=== PATIENT | female | born 1985 | race Caucasian/White ===

== ENCOUNTER 2017-05-15 10:46 | Emergency (ER) | payer MEDICAID ==
[2017-05-15 10:55] VITALS: BMI 29.2
--- NOTE | 2017-05-15 10:56 | ED PDOC ---
Arrival/HPI - General Time Seen by Provider: 05/15/17 10:49 Historian: Patient - History of Present Illness Narrative History of Present Illness (Text): 05/15/17 10:53 31yo female present with complaint of suprapubic abdominal pain x 2weeks. Also reports nausea and vomiting. she states her LMP was March 28. States she took home test and it was positive. Denies vaginal bleeding, urinary symptoms, fever, chills, chest pain, any other complaint. Past Medical History - Provider Review Nursing Documentation Reviewed: Yes - Cardiac Hx Cardiac Disorders: No - Pulmonary Hx Respiratory Disorders: No - Neurological Hx Neurological Disorder: No - HEENT Hx HEENT Disorder: No - Renal Hx Renal Disorder: No - Endocrine/Metabolic Hx Endocrine Disorders: No - Hematological/Oncological Hx Blood Disorders: No - Integumentary Hx Dermatological Disorder: No - Musculoskeletal/Rheumatological Hx Musculoskeletal Disorders: No - Gastrointestinal Hx Gastritis: Yes Hx Gastrointestinal Ulcer: Yes - Genitourinary/Gynecological Hx Genitourinary Disorders: No - Psychiatric Hx Substance Use: No - Surgical History Hx Section: Yes (x1) - Anesthesia Hx Anesthesia: Yes Hx Anesthesia Reactions: No - Suicidal Assessment Feels Threatened In Home Enviroment: No Family/Social History - Physician Review Nursing Documentation Reviewed: Yes Family/Social History: Unknown Family HX Smoking Status: Never Smoked Hx Alcohol Use: No Hx Substance Use: No Allergies/Home Meds Allergies/Adverse Reactions: Allergies No Known Allergies Allergy (Verified 05/15/17 10:55) Home Medications: Home Meds Medication Instructions Recorded Confirmed No Known Home Med 05/15/17 05/15/17 Review of Systems - Physician Review All systems were reviewed & negative as marked: Yes - Review of Systems Constitutional: Normal Eyes: Normal ENT: Normal Respiratory: Normal Cardiovascular: Normal Gastrointestinal: Abdominal Pain, Nausea, Vomiting. absent: Constipation, Diarrhea, Hematochezia, Hematemesis Genitourinary Female: Normal Musculoskeletal: Normal Skin: Normal Neurological: Normal Endocrine: Normal Hemo/Lymphatic: Normal Psychiatric: Normal Physical Exam Vital Signs Reviewed: Yes Vital Signs Temp Pulse Resp BP Pulse Ox 05/15/17 14:18 98 F 75 20 125/71 99 05/15/17 12:19 98 F 73 20 137/70 98 05/15/17 11:28 98.1 F 05/15/17 11:07 98.2 F 75 18 125/75 98 Temperature: Afebrile Blood Pressure: Normal Pulse: Regular Respiratory Rate: Normal Appearance: Positive for: Well-Appearing, Non-Toxic, Comfortable Pain Distress: None Mental Status: Positive for: Alert and Oriented X 3 - Systems Exam Head: Present: Atraumatic, Normocephalic Pupils: Present: PERRL Extroacular Muscles: Present: EOMI Conjunctiva: Present: Normal Mouth: Present: Moist Mucous Membranes Neck: Present: Normal Range of Motion Respiratory/Chest: Present: Clear to Auscultation, Good Air Exchange. No: Respiratory Distress, Accessory Muscle Use Cardiovascular: Present: Regular Rate and Rhythm, Normal S1, S2. No: Murmurs Abdomen: Present: Tenderness (Suprapubic tenderness), Normal Bowel Sounds. No: Distention, Peritoneal Signs, Rebound, Guarding, McBurney's Point Tender, Rovsing's Sign Present Back: Present: Normal Inspection Upper Extremity: Present: Normal Inspection. No: Cyanosis, Edema Lower Extremity: Present: Normal Inspection. No: Edema Neurological: Present: GCS=15, CN II-XII Intact, Speech Normal Skin: Present: Warm, Dry, Normal Color. No: Rashes Psychiatric: Present: Alert, Oriented x 3, Normal Insight, Normal Concentration Medical Decision Making ED Course and Treatment: 05/15/17 14:19 IMPRESSION: A single viable intrauterine gestation identified within intracavity early 1st trimester with a gestational age measuring 6 weeks 3 days based on crown-rump length measurement. Positive cardiac activity identified as discussed above. No suspicious hemorrhage related to gestation at this time. Clinical correlation is advised. Follow-up ultrasound can be performed as clinically warranted. - Lab Interpretations Lab Results: 05/15/17 11:25 05/15/17 11:25 Lab Results 05/15/17 11:25: Beta HCG, Quant 64650.00 H 05/15/17 11:25: Sodium 137, Potassium 4.1, Chloride 101, Carbon Dioxide 26, Anion Gap 14, BUN 8, Creatinine 0.7, Est GFR ( Amer) > 60, Est GFR (Non- Af Amer) > 60, Random Glucose 97, Calcium 9.5, Total Bilirubin 0.6, AST 26, ALT 31, Alkaline Phosphatase 74, Total Protein 7.9, Albumin 4.3, Globulin 3.6, Albumin/Globulin Ratio 1.2 05/15/17 11:25: PT 12.4, INR 1.12 H, APTT 31.1 05/15/17 11:25: WBC 9.8, RBC 4.63, Hgb 13.1, Hct 38.9, MCV 84.0, MCH 28.3, MCHC 33.7, RDW 13.3, Plt Count 273, MPV 8.8, Gran % 74.8 H, Lymph % (Auto) 21.0 L, [place] % (Auto) 3.7, Eos % (Auto) 0.3 L, Baso % (Auto) 0.2, Gran # 7.32 H, Lymph # 2.1, [place] # 0.4, Eos # 0.0, Baso # 0.02 05/15/17 11:15: Urine Color Yellow, Urine Appearance Sl cloudy, Urine pH 6.0, Ur Specific [place] >= 1.030, Urine Protein Trace H, Urine Glucose (UA) Negative , Urine Ketones Negative, Urine Blood Negative, Urine Nitrate Negative, Urine Bilirubin Negative, Urine Urobilinogen 0.2, Ur Leukocyte Esterase Negative, Urine RBC 0 - 2, Urine WBC 0 - 2, Ur Epithelial Cells 6 - 8, Urine Bacteria Small, Urine HCG, Qual Positive - RAD Interpretation Radiology Orders: 05/15/17 10:56 OB TRANSVAGINAL [US] Stat - Medication Orders Current Medication Orders: Discontinued Medications Acetaminophen (Tylenol 325mg Tab) 650 mg PO STAT STA Stop: 05/15/17 10:59 Last Admin: 05/15/17 11:28 Dose: 650 mg MAR Pain/Vitals Document 05/15/17 11:28 MS (Rec: 05/15/17 11:32 MS [facility] [id number] Pain Reassessment Is This A Pain ReAssessment? No Sleep Is patient sleeping during reassessment? No Presence of Pain Presence of Pain Yes Pain Scale Used Pain Scale Used Numeric Location Left, Right or Bilateral Bilateral Upper or Lower Lower Pain Location Body Site Abdomen Description Constant Intensity 4 Scale Used Numeric Pain Behavior Irritability Restlessness Alleviating Factors Medication Vitals Temperature (97.6 F-99.6 F) 98.1 F Temperature Source Oral Sodium Chloride (Sodium Chloride 0.9%) 1,000 mls @ 999 mls/hr IV .Q1H1M STA Stop: 05/15/17 11:57 Last Admin: 05/15/17 11:44 Dose: 999 mls/hr eMAR Start Stop Document 05/15/17 11:44 MS (Rec: 05/15/17 11:44 [place] [facility] [place] [email or web address] Intravenous Solution Start Date 05/15/17 Start Time 11:30 Ondansetron HCl (Zofran Inj) 4 mg IVP STAT STA Stop: 05/15/17 10:59 Last Admin: 05/15/17 11:32 Dose: 4 mg IVP Administration Document 05/15/17 11:32 MS (Rec: 05/15/17 11:32 [facility] [place] [email or web address] Charges for Administration # of IVP Administrations 1 Disposition/Present on Arrival - Present on Arrival Any Indicators Present on Arrival: No History of DVT/PE: No History of Uncontrolled Diabetes: No Urinary Catheter: No History Surgical Site Infection Following: None - Disposition Have Diagnosis and Disposition been Completed?: Yes Diagnosis: Abdominal pain in Disposition: HOME/ ROUTINE Disposition Time: 14:20 Patient Plan: Discharge Condition: STABLE Discharge Instructions (ExitCare): Abdominal Pain in (ED) Additional Instructions: Follow up with your TEAM PRIMARY CARE PHYSICIAN Return to ED for any new symptoms Referrals: Pepper Garcia, [Primary Care Provider] - Follow up with primary Cele Beltran MD [Staff Provider] - Follow up with primary
[2017-05-15] MEDS ORDERED: Sodium Chloride 0.9% 1,000 ML IV STA (10:57)
[2017-05-15 11:34] LABS: BASO # 0.02 K/mm3 (0.0-2.0); BASO % 0.2 % (0.0-3.0); EOS % 0.3 % (1.5-5.0); GRAN # 7.32 (1.4-6.5); GRAN % 74.8 % (50.0-68.0); HEMATOCRIT 38.9 % (36.0-48.0); LYMPH # 2.1 (1.2-3.4); MEAN CORPUSCULAR HEMOGLOBIN 28.3 pg (25.0-35.0); MEAN CORPUSCULAR HGB CONC 33.7 g/dl (31.0-37.0); MEAN PLATELET VOLUME 8.8 fl (7.0-11.0); MONO # 0.4 (0.1-0.6); MONO % 3.7 % (1.0-6.0); RED CELL DISTRIBUTION WIDTH 13.3 % (11.5-14.5); WHITE BLOOD COUNT 9.8 10^3/ul (4.5-11.0)
[2017-05-15 11:39] LABS: URINE BILIRUBIN NEGATIVE (NEGATIVE); URINE BLOOD NEGATIVE (NEGATIVE); URINE GLUCOSE (UA) NEGATIVE (NEGATIVE); URINE KETONE NEGATIVE (NEGATIVE); URINE LEUKOCYTE ESTERASE NEGATIVE Leu/uL (NEGATIVE); URINE PROTEIN TRACE mg/dL (<30 mg/dL); URINE UROBILINOGEN 0.2 E.U./dL (<1 E.U./dL)
[2017-05-15 11:42] LABS: URINE APPEARANCE SL CLOUDY (CLEAR); URINE COLOR YELLOW (YELLOW)
[2017-05-15 11:44] LABS: INR 1.12 (0.93-1.08); PARTIAL THROMBOPLASTIN TIME 31.1 Seconds (25.1-36.5)
[2017-05-15 11:49] LABS: ALB/GLOB RATIO 1.2 (1.1-1.8); ALKALINE PHOSPHATASE 74 U/L (38-126); ALT/SGPT 31 U/L (7-56); AST/SGOT 26 U/L (14-36); BILIRUBIN,TOTAL 0.6 mg/dL (0.2-1.3); BLOOD UREA NITROGEN 8 mg/dL (7-21); CALCIUM 9.5 mg/dL (8.4-10.5); CARBON DIOXIDE 26 mmol/L (21-33); CHLORIDE 101 mmol/L (98-107); GFR AFRICAN-AMERICAN > 60; GLUCOSE,RANDOM 97 mg/dL (70-110); POTASSIUM 4.1 mmol/L (3.6-5.0); SODIUM 137 mmol/L (132-148); TOTAL PROTEIN 7.9 g/dL (5.8-8.3)
[2017-05-15 11:54] LABS: URINE BACTERIA SMALL (NEG); URINE RBC 0 - 2 /hpf (0-2); URINE WBC 0 - 2 /hpf (0-6)
[2017-05-15 12:20] VITALS: TEMP 98
--- NOTE | 2017-05-15 14:15 | US ---
HISTORY: abdominal pain/ COMPARISON: None available. TECHNIQUE: Transabdominal and transvaginal pelvic ultrasound were performed for evaluation of . Last menstrual period is unknown. FINDINGS: UTERUS: Measures 10 x 5 x 6.5 x 8.3 cm. Uterus is enlarged by intrauterine gestation. No discrete myometrial lesion is identified throughout. The uterus appears anteverted. ENDOMETRIUM: A gestational sac is identified within the endometrial cavity with yolk sec identified measuring 0.3 cm. pole is identified with a mean crown-rump length measurement of 0.61 cm corresponds to a average ultrasound age of 6 weeks 3 days. The mean gestational sac measures 1.76 cm. cardiac activity is recorded at 129 beats per minute. No definite decidual related hemorrhage is appreciated in the decidual reaction which is unremarkable appearing. CERVIX: Closed cervix is identified measuring 3.8 cm. RIGHT OVARY: Measures 3.8 x 2.2 x 2.1 cm. No solid mass. Normal flow. LEFT OVARY: Measures 2.5 x 1.5 x 1.4 cm. No solid mass. Normal flow. FREE FLUID: No significant free fluid noted. OTHER FINDINGS: None. IMPRESSION: A single viable intrauterine gestation identified within intracavity early 1st trimester with a gestational age measuring 6 weeks 3 days based on crown-rump length measurement. Positive cardiac activity identified as discussed above. No suspicious hemorrhage related to gestation at this time. Clinical correlation is advised. Follow-up ultrasound can be performed as clinically warranted.
[2017-05-15 14:19] VITALS: PULSE 75
[2017-05-15 17:03] VITALS: BP 124/71; RESP 19; O2SAT 100
== END 2017-05-15 17:06 | disposition home or self-care (01) ==
LOC: ED 10:46
DX: O26.891 Other specified pregnancy related conditions, first trimester (principal); Z3A.01 Less than 8 weeks gestation of pregnancy; R10.9 Unspecified abdominal pain
CPT/HCPCS: 76817; 80053; 81001; 84702; 84703; 85025; 85610; 85730; 96374; 99284; J2405; J7040

== ENCOUNTER 2017-06-04 18:41 | Emergency (ER) | payer MEDICAID ==
[2017-06-04 18:41] VITALS: BMI 29.2
[2017-06-04 19:23] VITALS: RESP 18; TEMP 98.4; O2SAT 100
[2017-06-04] MEDS ORDERED: Famotidine 20mg/50ml 20 MG/50 ML BAG IVPB STA (19:45)
[2017-06-04] MEDS ORDERED: Sodium Chloride 0.9% 1,000 ML IV STA (19:47)
--- NOTE | 2017-06-04 20:21 | ED PDOC ---
Arrival/HPI - General Chief Complaint: Abdominal Pain Time Seen by Provider: 06/04/17 19:13 Historian: Patient - History of Present Illness Narrative History of Present Illness (Text): 06/04/17 20:21 A 31 year old female, , 9 weeks , for 1st , and gastritis (not taking medications for it), Croatian speaking, presents to the emergency department complaining of epigastric, RUQ abdominal pain diffusely for a week and vomiting all day today. Patient notes a low grade fever, unsure how high and constipation for the past 5 days, notes hurts to defecate. Also reports lower back pain, neck pain and right arm pain. Denies any vaginal bleeding, significant lower abdominal pain, right arm weakness or any other complaints at this time. VEHICLE GLASS TECHNICIAN: Dr. Escobedo Time/Duration: Other (week, today) Symptom Onset: Sudden Symptom Course: Unchanged Activities at Onset: Rest Context: Home Past Medical History - Provider Review Nursing Documentation Reviewed: Yes - Infectious Disease Hx of Infectious Diseases: None - Cardiac Hx Cardiac Disorders: No - Pulmonary Hx Respiratory Disorders: No - Neurological Hx Neurological Disorder: No - HEENT Hx HEENT Disorder: No - Renal Hx Renal Disorder: No - Endocrine/Metabolic Hx Endocrine Disorders: No - Hematological/Oncological Hx Blood Disorders: No - Integumentary Hx Dermatological Disorder: No - Musculoskeletal/Rheumatological Hx Musculoskeletal Disorders: No - Gastrointestinal Hx Gastroesophageal Reflux: Yes Hx Gastrointestinal Ulcer: Yes Other/Comment: Gastritis - Genitourinary/Gynecological Hx Genitourinary Disorders: No - Psychiatric Hx Psychophysiologic Disorder: No Hx Substance Use: No - Surgical History Hx Section: Yes (x1) - Anesthesia Hx Anesthesia: Yes Hx Anesthesia Reactions: No Hx Malignant Hyperthermia: No - Suicidal Assessment Feels Threatened In Home Enviroment: No Family/Social History - Physician Review Nursing Documentation Reviewed: Yes Family/Social History: No Known Family HX Smoking Status: Never Smoked Hx Alcohol Use: No Hx Substance Use: No Allergies/Home Meds Allergies/Adverse Reactions: Allergies No Known Allergies Allergy (Verified 05/15/17 10:55) Review of Systems - Physician Review All systems were reviewed & negative as marked: Yes - Review of Systems Constitutional: Fevers (low grade) Gastrointestinal: Abdominal Pain (RUQ and epigastric; no lower abdominal pain), Constipation, Vomiting Genitourinary Female: absent: Vaginal Bleeding Musculoskeletal: Back Pain (lower), Neck Pain, Other (r arm pain) Physical Exam Vital Signs Reviewed: Yes Vital Signs Temp Pulse Resp BP Pulse Ox 06/04/17 21:54 86 18 116/72 100 06/04/17 19:22 98.4 F 88 18 122/73 100 Temperature: Afebrile Blood Pressure: Normal Pulse: Regular Respiratory Rate: Normal Appearance: Positive for: Well-Appearing, Non-Toxic, Comfortable Pain Distress: None Mental Status: Positive for: Alert and Oriented X 3 - Systems Exam Head: Present: Atraumatic, Normocephalic Pupils: Present: PERRL Extroacular Muscles: Present: EOMI Conjunctiva: Present: Normal Mouth: Present: Moist Mucous Membranes Neck: Present: Normal Range of Motion Respiratory/Chest: Present: Clear to Auscultation, Good Air Exchange. No: Respiratory Distress, Accessory Muscle Use Cardiovascular: Present: Regular Rate and Rhythm, Normal S1, S2. No: Murmurs Abdomen: Present: Tenderness (epigastric and RUQ pain), Normal Bowel Sounds, Other (gravid abdomen). No: Distention, Peritoneal Signs Back: Present: Normal Inspection Upper Extremity: Present: Normal Inspection. No: Cyanosis, Edema Lower Extremity: Present: Normal Inspection. No: Edema Neurological: Present: GCS=15, CN II-XII Intact, Speech Normal Skin: Present: Warm, Dry, Normal Color. No: Rashes Psychiatric: Present: Alert, Oriented x 3, Normal Insight, Normal Concentration Medical Decision Making ED Course and Treatment: 06/04/17 20:18 Impression: A 31 year old female, 9 weeks , with epigastric and RUQ abdominal pain, vomiting and constipation. Differential Diagnosis included but are not limited to: r/o UTI vs. cholecystitis Plan: -- US gallbladder -- labs -- Urinalysis -- Dulcolax, Pepcid, Reglan, IV fluids, Tylenol -- Reassess and disposition Prior Visits: Notes and results from previous visits were reviewed. Patient was last seen in the emergency department on 05/21/17 for evaluation of nausea, vomiting and epigastric pain. Progress Notes: US Abdomen Limited, Right Upper Quadrant FINDINGS: Liver: Liver is unremarkable. There is hepatopedal flow in the main portal vein. Gallbladder: Gallbladder is distended with no stones, sludge or wall thickening. Common bile duct: Common bile duct measures approximately 3 mm in diameter. Pancreas: Pancreas is partially obscured by bowel gas. Visualized portions unremarkable. Right kidney: Right kidney is unremarkable. Aorta: Visualized portions of the aorta and inferior vena cava are unremarkable. IMPRESSION: No gallstones or ductal dilatation Patient was not tender over the gallbladder. Dictated and Authenticated by: Kelly Cabello MD 06/04/2017 9:04 PM Eastern Time ([place] & [place]) 06/07/17 14:21 lab exam shows no signfiicant electrolyte abnormalities, no UTI, no LFT elevation. no signficiant dehydration. bedside u/s shows good movement. will d/c - Lab Interpretations Microbiology Results: Microbiology Results 06/04/17 20:00 Urine,Clean Catch Urine Culture - Final No Growth (<1,000 CFU/ML) Lab Results: 06/04/17 20:00 06/04/17 20:00 Lab Results 06/04/17 20:00: Urine Color Yellow, Urine Appearance Clear, Urine pH 6.5, Ur Specific [place] 1.020, Urine Protein Negative, Urine Glucose (UA) Negative, Urine Ketones Negative, Urine Blood Negative, Urine Nitrate Negative, Urine Bilirubin Negative, Urine Urobilinogen 0.2, Ur Leukocyte Esterase Negative 06/04/17 20:00: Sodium 136, Potassium 3.9, Chloride 102, Carbon Dioxide 26, Anion Gap 11, BUN 9, Creatinine 0.7, Est GFR ( Amer) > 60, Est GFR (Non- Af Amer) > 60, Random Glucose 89, Calcium 9.8, Magnesium 1.8, Total Bilirubin 0.4, AST 28, ALT 32, Alkaline Phosphatase 74, Total Protein 7.9, Albumin 4.1, Globulin 3.7, Albumin/Globulin Ratio 1.1, Lipase 247 06/04/17 20:00: WBC 11.5 H, RBC 4.16, Hgb 11.9 L, Hct 35.3 L, MCV 84.9, MCH 28.6 , MCHC 33.7, RDW 13.5, Plt Count 256, MPV 9.4, Gran % 68.4 H, Lymph % (Auto) 25.9, [place] % (Auto) 5.3, Eos % (Auto) 0.3 L, Baso % (Auto) 0.1, Gran # 7.83 H, Lymph # 3.0, [place] # 0.6, Eos # 0.0, Baso # 0.01 I have reviewed the lab results: Yes - RAD Interpretation Radiology Orders: 06/04/17 19:42 GALL BLADDER [US] Stat - Medication Orders Current Medication Orders: Discontinued Medications Acetaminophen (Tylenol 325mg Tab) 650 mg PO STAT STA Stop: 06/04/17 19:45 Last Admin: 06/04/17 20:36 Dose: 650 mg MAR Pain/Vitals Document 06/04/17 20:36 SE (Rec: 06/04/17 20:36 SE [id number]) Pain Reassessment Is This A Pain ReAssessment? No Sleep Is patient sleeping during reassessment? No Presence of Pain Presence of Pain Yes Pain Scale Used Pain Scale Used Numeric Bisacodyl (Dulcolax) 10 mg RC STAT STA Stop: 06/04/17 19:46 Last Admin: 06/04/17 20:36 Dose: 10 mg Famotidine (Pepcid 20mg/50ml Premix) 20 mg in 50 mls @ 100 mls/hr IVPB STAT STA Stop: 06/04/17 20:14 Last Admin: 06/04/17 20:36 Dose: 100 mls/hr eMAR Start Stop Document 06/04/17 20:36 SE (Rec: 06/04/17 20:36 SE [id number]) Intravenous Solution Start Date 06/04/17 Start Time 20:36 Sodium Chloride (Sodium Chloride 0.9%) 1,000 mls @ 999 mls/hr IV .Q1H1M STA Stop: 06/04/17 20:47 Last Admin: 06/04/17 20:18 Dose: 999 mls/hr eMAR Start Stop Document 06/04/17 20:18 EQ (Rec: 06/04/17 20:18 EQ [id number] Intravenous Solution Start Date 06/04/17 Start Time 20:18 Metoclopramide HCl (Reglan) 10 mg IVP STAT STA Stop: 06/04/17 19:45 Last Admin: 06/04/17 21:00 Dose: Not Given Non-Admin Reason: Patient Refused IVP Administration Document 06/04/17 21:00 EQ (Rec: 06/04/17 21:00 EQ [email or web address] Charges for Administration # of IVP Administrations 1 - Scribe Statement The provider has reviewed the documentation as recorded by the Uche Sagastume Provider Uche Attestation: All medical record entries made by the Alfredoibrani were at my direction and personally dictated by me. I have reviewed the chart and agree that the record accurately reflects my personal performance of the history, physical exam, medical decision making, and the department course for this patient. I have also personally directed, reviewed, and agree with the discharge instructions and disposition. Disposition/Present on Arrival - Present on Arrival Any Indicators Present on Arrival: No History of DVT/PE: No History of Uncontrolled Diabetes: No Urinary Catheter: No History of Decub. Ulcer: No History Surgical Site Infection Following: None - Disposition Have Diagnosis and Disposition been Completed?: Yes Diagnosis: Hyperemesis gravidarum, Gastritis Disposition: HOME/ ROUTINE Disposition Time: 21:37 Patient Plan: Discharge Condition: IMPROVED Discharge Instructions (ExitCare): Hyperemesis Gravidarum (ED), Gastritis (ED) Print Language: SLOVAK Prescriptions: Metoclopramide HCl [Reglan] 10 mg PO Q8 PRN #30 tablet PRN Reason: Nausea/Vomiting Ranitidine HCl [Zantac] 150 mg PO BID PRN #20 tablet PRN Reason: Gi Distress Referrals: PCP,NO [Primary Care Provider] - [facility] - Follow up with primary Forms: nuPSYS (Croatian)
[2017-06-04 20:33] LABS: PH,URINE 6.5 (4.7-8.0); URINE BILIRUBIN NEGATIVE (NEGATIVE); URINE BLOOD NEGATIVE (NEGATIVE); URINE GLUCOSE (UA) NEGATIVE (NEGATIVE); URINE KETONE NEGATIVE (NEGATIVE); URINE LEUKOCYTE ESTERASE NEGATIVE Leu/uL (NEGATIVE); URINE PROTEIN NEGATIVE mg/dL (<30 mg/dL); URINE UROBILINOGEN 0.2 E.U./dL (<1 E.U./dL)
[2017-06-04 20:38] LABS: URINE APPEARANCE CLEAR (CLEAR); URINE COLOR YELLOW (YELLOW)
[2017-06-04 20:43] LABS: ALB/GLOB RATIO 1.1 (1.1-1.8); ALKALINE PHOSPHATASE 74 U/L (38-126); ALT/SGPT 32 U/L (7-56); AST/SGOT 28 U/L (14-36); BILIRUBIN,TOTAL 0.4 mg/dL (0.2-1.3); BLOOD UREA NITROGEN 9 mg/dL (7-21); CALCIUM 9.8 mg/dL (8.4-10.5); CARBON DIOXIDE 26 mmol/L (21-33); CHLORIDE 102 mmol/L (98-107); GFR AFRICAN-AMERICAN > 60; GLUCOSE,RANDOM 89 mg/dL (70-110); LIPASE 247 U/L (23-300); MAGNESIUM 1.8 mg/dL (1.7-2.2); POTASSIUM 3.9 mmol/L (3.6-5.0); SODIUM 136 mmol/L (132-148); TOTAL PROTEIN 7.9 g/dL (5.8-8.3)
--- NOTE | 2017-06-04 21:04 | US ---
EXAM: US Abdomen Limited, Right Upper Quadrant EXAM DATE/TIME: 06/04/2017 7:42 PM CLINICAL HISTORY: 31 years old, female; Pain; Abdominal pain; Flank; Right upper quadrant (ruq); ; Additional info: Ruq pain TECHNIQUE: Real-time ultrasound of the right upper quadrant with image documentation. COMPARISON: US - ABDOMEN COMPLETE 2017-05-21 20:27 FINDINGS: Liver: Liver is unremarkable. There is hepatopedal flow in the main portal vein. Gallbladder: Gallbladder is distended with no stones, sludge or wall thickening. Common bile duct: Common bile duct measures approximately 3 mm in diameter. Pancreas: Pancreas is partially obscured by bowel gas. Visualized portions unremarkable. Right kidney: Right kidney is unremarkable. Aorta: Visualized portions of the aorta and inferior vena cava are unremarkable. IMPRESSION: No gallstones or ductal dilatation Patient was not tender over the gallbladder
[2017-06-04 21:55] VITALS: BP 116/72; PULSE 86
[2017-06-04 22:13] LABS: BASO # 0.01 K/mm3 (0.0-2.0); BASO % 0.1 % (0.0-3.0); EOS % 0.3 % (1.5-5.0); GRAN # 7.83 (1.4-6.5); GRAN % 68.4 % (50.0-68.0); HEMATOCRIT 35.3 % (36.0-48.0); LYMPH % 25.9 % (22.0-35.0); MEAN CELL VOLUME 84.9 fl (80.0-105.0); MEAN CORPUSCULAR HEMOGLOBIN 28.6 pg (25.0-35.0); MEAN CORPUSCULAR HGB CONC 33.7 g/dl (31.0-37.0); MEAN PLATELET VOLUME 9.4 fl (7.0-11.0); MONO # 0.6 (0.1-0.6); MONO % 5.3 % (1.0-6.0); RED CELL DISTRIBUTION WIDTH 13.5 % (11.5-14.5); WHITE BLOOD COUNT 11.5 10^3/ul (4.5-11.0)
== END 2017-06-04 22:01 | disposition home or self-care (01) ==
LOC: ED 18:41
DX: O21.0 Mild hyperemesis gravidarum (principal); K29.70 Gastritis, unspecified, without bleeding; Z3A.09 9 weeks gestation of pregnancy
CPT/HCPCS: 76705; 80053; 81003; 83690; 83735; 85025; 87086; 96374; 99284; J7040

== ENCOUNTER 2017-07-14 12:40 | Emergency (ER) | payer MEDICAID, OTHER ==
[2017-07-14 12:40] VITALS: BMI 29.2
[2017-07-14 13:17] VITALS: TEMP 98.3; O2SAT 100
[2017-07-14] MEDS ORDERED: Sodium Chloride 0.9% 500 ML IV STA (13:32)
--- NOTE | 2017-07-14 13:32 | ED PDOC ---
Arrival/HPI - General Chief Complaint: GI Problem Time Seen by Provider: 07/14/17 13:20 Historian: Patient - History of Present Illness Narrative History of Present Illness (Text): 07/14/17 13:32 A 31 year old female currently 14 weeks , who denies any past medical history, presents to the emergency department complaining of lower abdominal discomfort for 3 days. Patient notes associated nausea and non-bilious non- bloody vomiting. Patient took pepcid, with no relief. Patient denies any fever, chills, diarrhea, urinary symptoms, chest pain, shortness of breath or any other complaints. Time/Duration: Other (3 days) Symptom Course: Unchanged Quality: Other Context: Home Past Medical History - Provider Review Nursing Documentation Reviewed: Yes - Infectious Disease Hx of Infectious Diseases: None - Cardiac Hx Cardiac Disorders: No - Pulmonary Hx Respiratory Disorders: No - Neurological Hx Neurological Disorder: No - HEENT Hx HEENT Disorder: No - Renal Hx Renal Disorder: No - Endocrine/Metabolic Hx Endocrine Disorders: No - Hematological/Oncological Hx Blood Disorders: No - Integumentary Hx Dermatological Disorder: No - Musculoskeletal/Rheumatological Hx Musculoskeletal Disorders: No - Gastrointestinal Hx Gastrointestinal Disorders: Yes Hx Gastritis: Yes Hx Gastrointestinal Ulcer: Yes - Genitourinary/Gynecological Hx Genitourinary Disorders: No - Psychiatric Hx Psychophysiologic Disorder: No Hx Substance Use: No - Surgical History Hx Section: Yes (x1) - Anesthesia Hx Anesthesia: Yes Hx Anesthesia Reactions: No Hx Malignant Hyperthermia: No - Suicidal Assessment Feels Threatened In Home Enviroment: No Family/Social History - Physician Review Nursing Documentation Reviewed: Yes Family/Social History: No Known Family HX Smoking Status: Never Smoked Hx Alcohol Use: No Hx Substance Use: No Allergies/Home Meds Allergies/Adverse Reactions: Allergies No Known Allergies Allergy (Verified 07/14/17 13:09) Review of Systems - Physician Review All systems were reviewed & negative as marked: Yes - Review of Systems Constitutional: absent: Fevers, Night Sweats Respiratory: absent: SOB Cardiovascular: absent: Chest Pain Gastrointestinal: Abdominal Pain, Nausea, Vomiting. absent: Diarrhea Physical Exam Vital Signs Reviewed: Yes Vital Signs Temp Pulse Resp BP Pulse Ox 07/14/17 13:10 98.3 F 103 H 16 111/67 100 Temperature: Afebrile Blood Pressure: Normal Pulse: Tachycardic Respiratory Rate: Normal Appearance: Positive for: Well-Appearing, Non-Toxic, Comfortable Pain Distress: None Mental Status: Positive for: Alert and Oriented X 3 - Systems Exam Head: Present: Atraumatic, Normocephalic Pupils: Present: PERRL Extroacular Muscles: Present: EOMI Conjunctiva: Present: Normal Mouth: Present: Moist Mucous Membranes Respiratory/Chest: Present: Clear to Auscultation, Good Air Exchange. No: Respiratory Distress, Accessory Muscle Use Cardiovascular: Present: Regular Rate and Rhythm, Normal S1, S2. No: Murmurs Abdomen: Present: Normal Bowel Sounds. No: Tenderness, Distention, Peritoneal Signs, Rebound, Guarding Neurological: Present: GCS=15, CN II-XII Intact, Speech Normal Skin: Present: Warm, Dry, Normal Color. No: Rashes Psychiatric: Present: Alert, Oriented x 3, Normal Insight, Normal Concentration Medical Decision Making ED Course and Treatment: 07/14/17 13:32 Impression: A 31 year old female with nausea, vomiting and mild abdominal discomfort. Plan: -- Labs -- Urinalysis -- Zofran and IV fluids -- Reassess and disposition Progress Notes: - Lab Interpretations Lab Results: 07/14/17 13:50 07/14/17 13:50 Lab Results 07/14/17 14:00: Urine Color Yellow, Urine Appearance Turbid, Urine pH 7.5, Ur Specific [place] 1.020, Urine Protein 30 H, Urine Glucose (UA) Negative, Urine Ketones Trace H, Urine Blood Negative, Urine Nitrate Negative, Urine Bilirubin Small H, Urine Urobilinogen 1.0 H, Ur Leukocyte Esterase Negative, Urine RBC 0 - 2, Urine WBC 1 - 3, Ur Epithelial Cells 6 - 8, Amorphous Sediment Few, Urine Bacteria Many, Urine Other Uyeast 07/14/17 13:50: Sodium 134, Potassium 3.8, Chloride 101, Carbon Dioxide 23, Anion Gap 14, BUN 8, Creatinine 0.6 L, Est GFR ( Amer) > 60, Est GFR (Non -Af Amer) > 60, Random Glucose 81, Calcium 9.4, Total Bilirubin 0.4, AST 24, ALT 35, Alkaline Phosphatase 84, Total Protein 8.0, Albumin 4.1, Globulin 3.9, Albumin/Globulin Ratio 1.0 L 07/14/17 13:50: WBC 9.4, RBC 3.86, Hgb 11.2 L, Hct 32.9 L, MCV 85.2, MCH 29.0, MCHC 34.0, RDW 13.8, Plt Count 222, MPV 8.9, Gran % 78.3 H, Lymph % (Auto) 17.5 L, [place] % (Auto) 3.7, Eos % (Auto) 0.3 L, Baso % (Auto) 0.2, Gran # 7.34 H, Lymph # 1.6, [place] # 0.4, Eos # 0.0, Baso # 0.02 I have reviewed the lab results: Yes - Medication Orders Current Medication Orders: Discontinued Medications Sodium Chloride (Sodium Chloride 0.9%) 500 mls @ 999 mls/hr IV .Q31M STA Stop: 07/14/17 14:02 Last Admin: 07/14/17 13:57 Dose: 999 mls/hr eMAR Start Stop Document 07/14/17 13:57 EQ (Rec: 07/14/17 13:57 EQ [id number]) Intravenous Solution Start Date 07/14/17 Start Time 13:57 Ondansetron HCl (Zofran Inj) 4 mg IVP STAT STA Stop: 07/14/17 13:32 Last Admin: 07/14/17 13:57 Dose: 4 mg IVP Administration Document 07/14/17 13:57 EQ (Rec: 07/14/17 13:57 EQ [id number]) Charges for Administration # of IVP Administrations 1 - Scribe Statement The provider has reviewed the documentation as recorded by the Uche Newby Provider Scribe Attestation: All medical record entries made by the Scribrani were at my direction and personally dictated by me. I have reviewed the chart and agree that the record accurately reflects my personal performance of the history, physical exam, medical decision making, and the department course for this patient. I have also personally directed, reviewed, and agree with the discharge instructions and disposition. Disposition/Present on Arrival - Present on Arrival Any Indicators Present on Arrival: No History of DVT/PE: No History of Uncontrolled Diabetes: No Urinary Catheter: No History of Decub. Ulcer: No History Surgical Site Infection Following: None - Disposition Have Diagnosis and Disposition been Completed?: Yes Diagnosis: Nausea, , Nausea Disposition: HOME/ ROUTINE Disposition Time: 14:45 Patient Plan: Discharge Patient Problems: Current Active Problems Problem Status Onset Nausea Acute Nausea Acute Acute Condition: GOOD Prescriptions: Ondansetron [Zofran] 4 mg PO Q8H PRN #12 tab PRN Reason: Nausea/Vomiting Forms: [facility] ([place] Islander)
[2017-07-14 14:09] LABS: BASO # 0.02 K/mm3 (0.0-2.0); BASO % 0.2 % (0.0-3.0); EOS % 0.3 % (1.5-5.0); GRAN # 7.34 (1.4-6.5); GRAN % 78.3 % (50.0-68.0); HEMOGLOBIN 11.2 g/dL (12.0-16.0); LYMPH # 1.6 (1.2-3.4); LYMPH % 17.5 % (22.0-35.0); MEAN CELL VOLUME 85.2 fl (80.0-105.0); MEAN PLATELET VOLUME 8.9 fl (7.0-11.0); MONO # 0.4 (0.1-0.6); MONO % 3.7 % (1.0-6.0); RBC 3.86 10^6/uL (3.5-6.1); RED CELL DISTRIBUTION WIDTH 13.8 % (11.5-14.5); WHITE BLOOD COUNT 9.4 10^3/ul (4.5-11.0)
[2017-07-14 14:19] LABS: BLOOD UREA NITROGEN 8 mg/dL (7-21); GFR AFRICAN-AMERICAN > 60; GFR NON-AFRICAN AMERICAN > 60
[2017-07-14 14:20] LABS: ALBUMIN 4.1 g/dL (3.0-4.8); ALT/SGPT 35 U/L (7-56); AST/SGOT 24 U/L (14-36); CALCIUM 9.4 mg/dL (8.4-10.5)
[2017-07-14 14:22] LABS: PH,URINE 7.5 (4.7-8.0); URINE BILIRUBIN SMALL (NEGATIVE); URINE BLOOD NEGATIVE (NEGATIVE); URINE GLUCOSE (UA) NEGATIVE (NEGATIVE); URINE LEUKOCYTE ESTERASE NEGATIVE Leu/uL (NEGATIVE); URINE NITRATE NEGATIVE (NEGATIVE); URINE PROTEIN 30 mg/dL (<30 mg/dL)
[2017-07-14 14:23] LABS: URINE APPEARANCE TURBID (CLEAR); URINE COLOR YELLOW (YELLOW)
[2017-07-14 14:29] LABS: URINE AMORPHOUS SEDIMENT FEW; URINE BACTERIA MANY (NEG); URINE RBC 0 - 2 /hpf (0-2)
[2017-07-14 15:04] VITALS: BP 108/65; PULSE 94; RESP 18
== END 2017-07-14 15:13 | disposition home or self-care (01) ==
LOC: ED 12:40
DX: O21.0 Mild hyperemesis gravidarum (principal); Z3A.14 14 weeks gestation of pregnancy
CPT/HCPCS: 80053; 81001; 84702; 85025; 96374; 99284; J2405; J7040

== ENCOUNTER 2017-07-31 13:00 | Emergency (ER) | payer OTHER ==
[2017-07-31 13:00] VITALS: BMI 29.2
[2017-07-31 13:13] VITALS: TEMP 97.8
[2017-07-31] MEDS ORDERED: Sodium Chloride 0.9% 1,000 ML IV STA (13:49)
[2017-07-31 14:19] LABS: BASO # 0.02 K/mm3 (0.0-2.0); BASO % 0.2 % (0.0-3.0); EOS % 0.3 % (1.5-5.0); GRAN # 8.9 (1.4-6.5); GRAN % 81.9 % (50.0-68.0); HEMOGLOBIN 11.2 g/dL (12.0-16.0); LYMPH # 1.7 (1.2-3.4); LYMPH % 15.5 % (22.0-35.0); MEAN CELL VOLUME 86.4 fl (80.0-105.0); MEAN CORPUSCULAR HEMOGLOBIN 29.3 pg (25.0-35.0); MEAN CORPUSCULAR HGB CONC 33.9 g/dl (31.0-37.0); MEAN PLATELET VOLUME 9.1 fl (7.0-11.0); MONO # 0.2 (0.1-0.6); MONO % 2.1 % (1.0-6.0); RBC 3.82 10^6/uL (3.5-6.1); RED CELL DISTRIBUTION WIDTH 14.1 % (11.5-14.5); WHITE BLOOD COUNT 10.9 10^3/ul (4.5-11.0)
[2017-07-31 14:34] LABS: ALB/GLOB RATIO 1.1 (1.1-1.8); ALBUMIN 4.2 g/dL (3.0-4.8); ALT/SGPT 33 U/L (7-56); AMYLASE 104 U/L (35-125); AST/SGOT 22 U/L (14-36); BLOOD UREA NITROGEN 6 mg/dL (7-21); CALCIUM 9.5 mg/dL (8.4-10.5); GFR AFRICAN-AMERICAN > 60; GFR NON-AFRICAN AMERICAN > 60; LIPASE 163 U/L (23-300)
--- NOTE | 2017-07-31 15:49 | US ---
HISTORY: epigastric/RUQ tenderness COMPARISON: None. TECHNIQUE: Sonographic evaluation of the abdomen. FINDINGS: LIVER: Measures 13 x 12 cm. Normal echogenicity of the liver parenchyma. No mass. No intrahepatic bile duct dilatation. GALLBLADDER: Small stones are layered in the gallbladder COMMON BILE DUCT: Measures 3 mm. No stones. No dilatation. PANCREAS: Unremarkable as visualized. No mass. No ductal dilatation. RIGHT KIDNEY: Measures 11.33 x 5.32 x 5.75cm. Normal echogenicity. No calculus, mass, or hydronephrosis. LEFT KIDNEY: Measures 10.69 x 4.88 x 5.52cm. Normal echogenicity. No calculus, mass, or hydronephrosis. SPLEEN: Normal in size and contour. No mass. 9.8 x 4.4 AORTA: No aneurysmal dilatation. IVC: Unremarkable. OTHER FINDINGS: None. IMPRESSION: Gallstones. No evidence of cholecystitis.
[2017-07-31 16:23] VITALS: BP 110/87; PULSE 82; RESP 16; O2SAT 97
--- NOTE | 2017-07-31 18:06 | ED PDOC ---
Arrival/HPI - General Chief Complaint: Abdominal Pain Time Seen by Provider: 07/31/17 13:28 Historian: Patient - History of Present Illness Narrative History of Present Illness (Text): 07/31/17 13:45 A 31 year old female, with no significant past medical history, presents to the emergency department complaining of mild nausea, vomiting, and diarrhea. , P :1. Currently . Patient reports has had symtpoms for 1 week. Denies of any fever, dysuria, defecation, bloody stool, hematuria, cough, chest pain, or any other complaints. Is able to tolerate liquids. Also, patient denies any recent travel or any sick contacts. Patient has documented IUP 06/23/2017. No PMD Time/Duration: 1 week Symptom Onset: Sudden Symptom Course: Unchanged Past Medical History - Provider Review Nursing Documentation Reviewed: Yes - Infectious Disease Hx of Infectious Diseases: None - Cardiac Hx Cardiac Disorders: No - Pulmonary Hx Respiratory Disorders: No - Neurological Hx Neurological Disorder: No - HEENT Hx HEENT Disorder: No - Renal Hx Renal Disorder: No - Endocrine/Metabolic Hx Endocrine Disorders: No - Hematological/Oncological Hx Blood Disorders: No - Integumentary Hx Dermatological Disorder: No - Musculoskeletal/Rheumatological Hx Musculoskeletal Disorders: No - Gastrointestinal Hx Gastrointestinal Disorders: Yes Hx Gastritis: Yes Hx Gastrointestinal Ulcer: Yes - Genitourinary/Gynecological Hx Genitourinary Disorders: No - Psychiatric Hx Psychophysiologic Disorder: No Hx Substance Use: No - Surgical History Hx Section: Yes (x1) - Anesthesia Hx Anesthesia: Yes Hx Anesthesia Reactions: No Hx Malignant Hyperthermia: No - Suicidal Assessment Feels Threatened In Home Enviroment: No Family/Social History - Physician Review Nursing Documentation Reviewed: Yes Family/Social History: No Known Family HX Smoking Status: Never Smoked Hx Alcohol Use: No Hx Substance Use: No Allergies/Home Meds Allergies/Adverse Reactions: Allergies No Known Allergies Allergy (Verified 07/31/17 13:09) Home Medications: Home Meds Medication Instructions Recorded Confirmed Folic Acid [Folic Acid] 1 tab PO DAILY 07/31/17 07/31/17 Vit No.126/Iron/Folic 1 tab PO DAILY 07/31/17 07/31/17 [Classic Tablet] Review of Systems - Physician Review All systems were reviewed & negative as marked: Yes - Review of Systems Constitutional: absent: Fevers Respiratory: absent: Cough Cardiovascular: absent: Chest Pain Gastrointestinal: Diarrhea, Nausea, Vomiting. absent: Stool Changes (no bloody stools; no defecation) Genitourinary Female: absent: Dysuria, Hematuria Physical Exam Vital Signs Reviewed: Yes Vital Signs Temp Pulse Resp BP Pulse Ox 07/31/17 16:15 82 16 110/87 97 07/31/17 13:12 97.8 F 85 17 105/70 96 Temperature: Afebrile Blood Pressure: Normal Pulse: Regular Respiratory Rate: Normal Appearance: Positive for: Well-Appearing Pain Distress: None Mental Status: Positive for: Alert and Oriented X 3 - Systems Exam Head: Present: Atraumatic, Normocephalic Pupils: Present: PERRL Extroacular Muscles: Present: EOMI Conjunctiva: Present: Normal Mouth: Present: Moist Mucous Membranes Neck: Present: Normal Range of Motion Respiratory/Chest: Present: Clear to Auscultation, Good Air Exchange. No: Respiratory Distress, Accessory Muscle Use Cardiovascular: Present: Regular Rate and Rhythm, Normal S1, S2. No: Murmurs Abdomen: Present: Tenderness (mild epigastric tenderness) Genitourinary/Pelvic Exam: Present: Other (uterine fundus 3 cm ) Back: Present: Normal Inspection Upper Extremity: Present: Normal Inspection. No: Cyanosis, Edema Lower Extremity: Present: Normal Inspection. No: Edema Neurological: Present: GCS=15, CN II-XII Intact, Speech Normal Skin: Present: Warm, Dry, Normal Color. No: Rashes Psychiatric: Present: Alert, Oriented x 3, Normal Insight, Normal Concentration Medical Decision Making ED Course and Treatment: 07/31/17 13:49 Impression: 31 year old female with mild nausea, vomiting, diarrhea. Physical exam shows mild epigastric tenderness; uterine fundus 3 cm; rest of physical examination is normal Plan: -- Abdominal Ultrasound -- Labs -- Urinalysis -- Urine Culture -- Pepcid -- Reglan -- IV Fluids -- Reassess and disposition Prior Visits: Notes and results from previous visits were reviewed. Patient was last seen in the emergency department on 07/14/2017 for lower abdominal discomfort. Patient was d/c home. Progress Notes: 07/31/2017 15:48 Abdominal Ultrasound IMPRESSION: Gallstones. No evidence of cholecystitis. Dictator: Pacheco West MD - Lab Interpretations Lab Results: 07/31/17 14:05 07/31/17 14:05 Lab Results 07/31/17 14:05: Sodium 135, Potassium 3.8, Chloride 101, Carbon Dioxide 23, Anion Gap 14, BUN 6 L, Creatinine 0.5 L, Est GFR ( Amer) > 60, Est GFR ( Non-Af Amer) > 60, Random Glucose 103, Calcium 9.5, Total Bilirubin 0.3, AST 22 , ALT 33, Alkaline Phosphatase 75, Total Protein 8.0, Albumin 4.2, Globulin 3.8 , Albumin/Globulin Ratio 1.1, Amylase 104, Lipase 163 07/31/17 14:05: WBC 10.9, RBC 3.82, Hgb 11.2 L, Hct 33.0 L, MCV 86.4, MCH 29.3, MCHC 33.9, RDW 14.1, Plt Count 216, MPV 9.1, Gran % 81.9 H, Lymph % (Auto) 15.5 L, [place] % (Auto) 2.1, Eos % (Auto) 0.3 L, Baso % (Auto) 0.2, Gran # 8.90 H, Lymph # 1.7, [place] # 0.2, Eos # 0.0, Baso # 0.02 - RAD Interpretation Radiology Orders: 07/31/17 13:49 ABDOMEN COMPLETE [US] Stat - Medication Orders Current Medication Orders: Discontinued Medications Famotidine (Pepcid) 20 mg IVP STAT STA Stop: 07/31/17 13:50 Last Admin: 07/31/17 14:12 Dose: 20 mg IVP Administration Document 07/31/17 14:12 SD (Rec: 07/31/17 14:12 SD [id number]) Charges for Administration # of IVP Administrations 1 Sodium Chloride (Sodium Chloride 0.9%) 1,000 mls @ 1,000 mls/hr IV .Q1H STA Stop: 07/31/17 14:48 Last Admin: 07/31/17 14:11 Dose: 1,000 mls/hr eMAR Start Stop Document 07/31/17 14:11 SD (Rec: 07/31/17 14:11 SD [id number]) Intravenous Solution Start Date 07/31/17 Start Time 14:11 Metoclopramide HCl (Reglan) 10 mg IVP STAT STA Stop: 07/31/17 13:52 Last Admin: 07/31/17 14:11 Dose: 10 mg IVP Administration Document 07/31/17 14:11 SD (Rec: 07/31/17 14:11 SD [id number]) Charges for Administration # of IVP Administrations 1 - Scribe Statement The provider has reviewed the documentation as recorded by the Uche Menendez Provider Scribe Attestation: All medical record entries made by the Scribe were at my direction and personally dictated by me. I have reviewed the chart and agree that the record accurately reflects my personal performance of the history, physical exam, medical decision making, and the department course for this patient. I have also personally directed, reviewed, and agree with the discharge instructions and disposition. Disposition/Present on Arrival - Present on Arrival Any Indicators Present on Arrival: No History of DVT/PE: No History of Uncontrolled Diabetes: No Urinary Catheter: No History of Decub. Ulcer: No History Surgical Site Infection Following: None - Disposition Have Diagnosis and Disposition been Completed?: Yes Diagnosis: Gallstones, Abdominal pain affecting Disposition: HOME/ ROUTINE Disposition Time: 15:45 Condition: GOOD Discharge Instructions (ExitCare): Gallstones (ED), at 15 to 18 Weeks (ED) Additional Instructions: Thank you for letting us take care of you today. The emergency medical care you received today was directed at your acute symptoms. If you were prescribed any medication, please fill it and take as directed. It may take several days for your symptoms to resolve. Return to the Emergency Department if your symptoms worsen, do not improve, or if you have any other problems. Please contact your doctor or call one of the physicians/clinics you have been referred to that are listed on the Patient Visit Information form that is included in your discharge packet. Bring any paperwork you were given at discharge with you along with any medications you are taking to your follow up visit. Our treatment cannot replace ongoing medical care by a primary care provider (PCP) outside of the emergency department. Thank you for allowing the [facility] team to be part of your care today. Follow up with your OCCUPATIONAL THERAPY SUPERVISOR in 2-3 days for re-evaluation and further management. Referrals: [email or web address], [Primary Care Provider] - Follow up with primary Forms: [facility] (Qatari)
== END 2017-07-31 16:28 | disposition home or self-care (01) ==
LOC: ED 13:00
DX: O26.92 Pregnancy related conditions, unspecified, second trimester (principal); K80.80 Other cholelithiasis without obstruction; R10.9 Unspecified abdominal pain; Z3A.00 Weeks of gestation of pregnancy not specified
CPT/HCPCS: 76700; 80053; 82150; 83690; 85025; 96374; 96375; 99284; J2765; J7040

== ENCOUNTER 2018-01-13 15:36 | Emergency (ER) | payer OTHER ==
[2018-01-13 15:37] VITALS: BMI 29.2
[2018-01-13 17:19] VITALS: BP 160/86; PULSE 62; RESP 18; TEMP 98.4; O2SAT 99
--- NOTE | 2018-01-13 18:27 | ED PDOC ---
Arrival/HPI - General Chief Complaint: Abnormal Skin Integrity Time Seen by Provider: 01/13/18 16:57 Historian: Patient - History of Present Illness Narrative History of Present Illness (Text): 01/13/18 18:31 32-year-old female presents today with concerns for wound dehiscence. Patient states she had a on 12/31/2017. Patient states 2 days ago she was seen by the doctor and had shruthi removed from her . Patient states she noticed that the wound is open. She denies fevers or chills. She is calm complaining of pain around the site. Patient states this pain has been there since the and states it is not worsened. She denies nausea vomiting or diarrhea. No constipation. Patient is concerned because the wound is open and she wants it to close so she can take care of her 2 kids. Time/Duration: > week Past Medical History - Provider Review Nursing Documentation Reviewed: Yes - Travel History Have you recently traveled outside [place] w/in the past 3 mons?: No - Infectious Disease Hx of Infectious Diseases: None - Cardiac Hx Cardiac Disorders: No - Pulmonary Hx Respiratory Disorders: No - Neurological Hx Neurological Disorder: No - HEENT Hx HEENT Disorder: No - Renal Hx Renal Disorder: No - Endocrine/Metabolic Hx Endocrine Disorders: No - Hematological/Oncological Hx Blood Disorders: No - Integumentary Hx Dermatological Disorder: No - Musculoskeletal/Rheumatological Hx Musculoskeletal Disorders: No - Gastrointestinal Hx Gastrointestinal Disorders: Yes Hx Gastritis: Yes Hx Gastrointestinal Ulcer: Yes - Genitourinary/Gynecological Hx Genitourinary Disorders: No - Psychiatric Hx Psychophysiologic Disorder: No Hx Substance Use: No - Surgical History Hx Section: Yes (x1) - Anesthesia Hx Anesthesia: Yes Hx Anesthesia Reactions: No Hx Malignant Hyperthermia: No - Suicidal Assessment Feels Threatened In Home Enviroment: No Family/Social History - Physician Review Nursing Documentation Reviewed: Yes Family/Social History: Unknown Family HX Smoking Status: Never Smoked Hx Alcohol Use: No Hx Substance Use: No Allergies/Home Meds Allergies/Adverse Reactions: Allergies No Known Allergies Allergy (Verified 01/13/18 15:59) Home Medications: Home Meds Medication Instructions Recorded Confirmed No Known Home Med 01/13/18 01/13/18 Review of Systems - Review of Systems Constitutional: absent: Fatigue, Fevers Respiratory: absent: SOB, Cough Cardiovascular: absent: Chest Pain, Palpitations Gastrointestinal: Abdominal Pain. absent: Constipation, Diarrhea, Nausea, Vomiting Genitourinary Female: absent: Dysuria, Frequency Musculoskeletal: absent: Arthralgias, Back Pain, Neck Pain Skin: Other (wound dehiscence) Neurological: absent: Headache, Dizziness Physical Exam Vital Signs Reviewed: Yes Vital Signs Temp Pulse Resp BP Pulse Ox 01/13/18 17:19 98.4 F 62 18 160/86 H 99 Temperature: Afebrile Blood Pressure: Hypertensive Pulse: Regular Respiratory Rate: Normal Appearance: Positive for: Well-Appearing, Non-Toxic, Comfortable Pain Distress: None Mental Status: Positive for: Alert and Oriented X 3 - Systems Exam Head: Present: Atraumatic Mouth: Present: Moist Mucous Membranes Respiratory/Chest: Present: Clear to Auscultation Cardiovascular: Present: Regular Rate and Rhythm Abdomen: Present: Tenderness (minimal tenderness noted around incision site; no surrounding erythema; no edema, no purulent discharge; there is a 3cm area of dehiscence along the right side of the incision site. Minimally tender without signs of infection.), Normal Bowel Sounds, Other. No: Distention, Peritoneal Signs, Rebound, Guarding Back: Present: Normal Inspection Upper Extremity: Present: Normal ROM Lower Extremity: Present: Normal ROM Neurological: Present: GCS=15, Speech Normal Skin: Present: Warm, Dry Psychiatric: Present: Alert, Oriented x 3 Medical Decision Making ED Course and Treatment: 01/13/18 18:35 pt is non toxic well appearing; no distress. stable vitals. with wound dehiscence to incision. Minimally tender around the incision site. There is a 3 cm area of dehiscence without signs of infection Patient was seen and evaluated by Dr. Tulio Wilburn-Strips applied to the area of dehiscence. Patient was advised to follow-up with the surgeon within the next 2 days. She is advised immediate return if signs of infection develop. Patient verbalizes understanding of discharge instructions and need for immediate followup. all aspects of this case were discussed the attending of record. Impression: Wound dehiscence follow up with the surgeon within the next 2 days return immediately if signs of infection develop; high fevers, increasing pain, redness, swelling or purulent discharge develop return if any other concerning symptoms develop. - Medication Orders Current Medication Orders: Discontinued Medications Acetaminophen (Tylenol 325mg Tab) 650 mg PO STAT STA Stop: 01/13/18 17:18 Last Admin: 01/13/18 17:49 Dose: 650 mg MAR Pain/Vitals Document 01/13/18 17:49 RAMBO (Rec: 01/13/18 17:50 RAMBO [facility] [id number]) Pain Reassessment Is This A Pain ReAssessment? Yes Presence of Pain Presence of Pain Yes Pain Scale Used Pain Scale Used Numeric Location Upper or Lower Lower Pain Location Body Site Abdomen Description Pressure Intensity 5 Disposition/Present on Arrival - Present on Arrival Any Indicators Present on Arrival: No History of DVT/PE: No History of Uncontrolled Diabetes: No Urinary Catheter: No History of Decub. Ulcer: No History Surgical Site Infection Following: None - Disposition Have Diagnosis and Disposition been Completed?: Yes Diagnosis: Wound dehiscence Disposition: HOME/ ROUTINE Disposition Time: 18:00 Patient Plan: Discharge Condition: GOOD Discharge Instructions (ExitCare): Wound Dehiscence (DC) Print Language: PRYDEINIG Additional Instructions: follow up with the surgeon within the next 2 days return immediately if signs of infection develop; high fevers, increasing pain, redness, swelling or purulent discharge develop return if any other concerning symptoms develop. Referrals: Brennan Corbin MD [Staff Provider] - [facility]] - Follow up with primary
== END 2018-01-13 18:33 | disposition home or self-care (01) ==
LOC: ED 15:36
DX: O90.0 Disruption of cesarean delivery wound (principal)